=== PATIENT | male | born 1930 | race Caucasian/White ===

== ENCOUNTER 2016-12-20 08:50 | Observation (INO) | payer MEDICARE, OTHER ==
--- NOTE | 2016-12-20 09:27 | RAD ---
Exam: Two-view chest COMPARISON: 02/06/2016, 08/30/[address] chest 04/27/2016 INDICATION: Cough and shortness of breath for 3 to 4 days. Findings: PA and lateral views of the chest were obtained. Cardiac silhouette is within normal limits. Lung volumes in the bases are relatively low, with left basilar scarring. Underlying upper lobe predominant emphysema is again appreciated. There is no focal airspace disease or pleural effusion. Right shoulder arthroplasty is appreciated. IMPRESSION: No acute pulmonary process.
[2016-12-20] MEDS ORDERED: ALBUTEROL/IPRATROPIUM 2.5/0.5 MG 3 ML/EACH DOSE ONE (09:55)
[2016-12-20] MEDS ORDERED: AZITHROMYCIN 250 MG TABLET ONE (09:59)
[2016-12-20] MEDS ORDERED: DEXAMETHASONE 4 MG TABLET ONE (09:59)
[2016-12-20] MEDS ORDERED: ALBUTEROL SULFATE 5MG/ML INHALANT 20 ML BOT ONE (10:41)
[2016-12-20] MEDS ORDERED: IPRATROPIUM BROMIDE 0.5 MG/2.5 ML DOSE ONE (10:41)
[2016-12-20 12:31] LABS: ABSOLUTE NEUTROPHIL COUNT 11.8 K/mm3 (1.8-7.7); BASO % 0.2 % (0.2-1.0); EOS # 0.1 (0.0-0.5); EOS % 0.4 % (0.9-2.9); HEMATOCRIT 37.6 % (32.0-52.0); HEMOGLOBIN 12.8 gm/l (14.0-18.0); IMM NEUT% 0.2 % (0-1); LYMPH # 1.2 (1.0-4.8); LYMPH % 8.6 % (15-45); MEAN CELL VOLUME 93.8 fl (80.0-94.0); MEAN CORPUSCULAR HEMOGLOBIN 31.9 pg (27.0-31.0); MEAN PLATELET VOLUME 9.2 fl (7.4-10.4); MONO # 0.5 (0.0-0.8); MONO % 3.4 % (4-12); NEUT % 87.2 % (43-75); PLATELET COUNT 217 K/mm3 (130-400); RED CELL DISTRIBUTION WIDTH 12.9 % (11.5-14.5)
[2016-12-20 13:20] LABS: URINE BILIRUBIN NEGATIVE (NEGATIVE); URINE BLOOD NEGATIVE (NEGATIVE); URINE GLUCOSE (UA) NEGATIVE (NEGATIVE); URINE LEUKOCYTE ESTERASE NEGATIVE (NEGATIVE); URINE NITRITE NEGATIVE (NEGATIVE); URINE PROTEIN TRACE (NEGATIVE); URINE UROBILINOGEN NORMAL (0-1 mg/dl)
[2016-12-20 13:21] LABS: URINE APPEARANCE CLEAR; URINE COLOR YELLOW
[2016-12-20 14:15] LABS: ALB/GLOB RATIO 1.1 (>1.0); ALBUMIN 3.7 gm/dL (3.5-5.7); CALCIUM 9.1 mg/dL (8.6-10.3)
[2016-12-20 14:58] VITALS: BMI 27.3
[2016-12-20] MEDS ORDERED: BLISTEX LIPSTICK 1 EACH TP PRN (16:06)
[2016-12-20] MEDS ORDERED: SODIUM CHLORIDE 0.9% 100 ML IV PRN (16:06)
[2016-12-20] MEDS ORDERED: MENTHOL/CETYLPYRD 1 EACH LOZENGE PO PRN (16:06)
[2016-12-20] MEDS ORDERED: BISACODYL 5 MG TABLET.EC PO PRN (16:06)
[2016-12-20] MEDS ORDERED: ACETAMINOPHEN 325 MG TABLET PO PRN (16:06)
[2016-12-20] MEDS ORDERED: BISACODYL 10 MG SUP PR PRN (16:06)
[2016-12-20] MEDS ORDERED: MAGNESIUM HYDROXIDE 30 ML UDCUP PO PRN (16:06)
[2016-12-20] MEDS ORDERED: ALBUTEROL SULFATE MDI 60 PUFFS/INHALER IH PRN (16:17)
[2016-12-20] MEDS ORDERED: ALBUTEROL/IPRATROPIUM 2.5/0.5 MG 3 ML/EACH DOSE NEB PRN (16:19)
[2016-12-20] MEDS: FLUTICASONE/SALMETEROL 250/50 14 PUFFS/DISK IH SCH (20:53)
[2016-12-20] MEDS: DOCUSATE SODIUM 100 MG CAPSULE PO SCH (20:53)
[2016-12-20] MEDS ORDERED: SODIUM CHLORIDE 0.9% 1,000 ML IV SCH (21:00)
[2016-12-20] MEDS ORDERED: EZETIMIBE 10 MG TABLET PO SCH (21:00)
[2016-12-20] MEDS ORDERED: FLUTICASONE/SALMETEROL 250/50 14 PUFFS/DISK IH SCH (21:00)
[2016-12-20] MEDS ORDERED: PUMP TUBING ONE (21:21)
[2016-12-20] MEDS: SODIUM CHLORIDE 0.9% 1,000 ML IV SCH (22:39)
--- NOTE | 2016-12-20 22:58 | HP ---
KURTIS GROSS [id number] DATE OF : 1930 IDENTIFICATION: An 86-year-old male. CHIEF COMPLAINT: Shortness of breath. HISTORY OF PRESENT ILLNESS: The patient is an 86-year-old male with a history of coronary artery disease and emphysema who developed worsening shortness of breath following a cold. On Sunday he developed head congestion, some shortness of breath and cough. The congestion has improved, but the shortness of breath has progressed since then. He caught the cold from his . He did not have any fevers with the cold, slight cough which has resolved. Due to the worsening shortness of breath he has presented to the emergency department today. Evaluation did not reveal an acute pneumonia. Slight increase in BMP, indicating some fluid overload, but not necessarily full-on heart failure as there is no peripheral edema evident on exam. He had no other complaints. REVIEW OF SYSTEMS: General - no fevers or chills. ENT - congestion. No throat pain. Cardiovascular - no chest pain or pressure. Respiratory - shortness of breath and cough. Abdomen - no abdominal pain, nausea, vomiting or diarrhea. - no difficulties with urination. Musculoskeletal - back pain. Neurologic - no lightheadedness, dizziness, numbness or tingling. PAST MEDICAL HISTORY: 1. Coronary artery disease, with a previous myocardial infarction and stenting. 2. COPD. 3. Hyponatremia, with a baseline sodium in the high 20's to lower 30's. 4. Hypertension. 5. Degenerative disk disease. 6. Testosterone deficiency. 7. Hyperlipidemia. 8. GERD. 9. Thyroid nodule. PAST SURGICAL HISTORY: Includes: 1. A right reversed shoulder arthroplasty in 2014. 2. Coronary artery stent in 2013. 3. Bilateral knee surgeries. 4. Left total knee replacement in 2012. 5. Cataract surgery. 6. Tonsillectomy and adenoidectomy. ALLERGIES: Include: 1. Statins. 2. Tetanus toxoid. 3. Ibuprofen. MEDICATIONS: 1. Albuterol. 2. Spiriva. 3. CoQ10. 4. Multivitamins. 5. Aspirin. 6. Testosterone. 7. Vitamin D-3. 8. Advair. 9. Omeprazole. 10. Zetia. 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 He lives with his . He has two daughters. Remote smoking history. He quit back in the 80's. FAMILY MEDICAL HISTORY: Mother with hypertension. A sister with Hodgkin's disease. A brother with emphysema and a second brother with colon cancer. PHYSICAL EXAMINATION: VITAL SIGNS: Temperature 97.8. Heart rate of 100. Blood pressure of 133/63. Saturating 95% on two liters nasal cannula. GENERAL: He is alert and oriented. No acute distress. Cooperative. HEENT: Normocephalic, atraumatic. No tenderness to palpation. His mucous membranes are moist. Pupils are equal, round and reactive. His extraocular muscles are intact. There is no scleral icterus or conjunctival injection. Trachea is midline. NECK: Supple. CARDIOVASCULAR: Positive S1, S2. It is regular. There are palpable peripheral pulses PT and radially. RESPIRATORY: Clear to auscultation bilaterally. No rhonchi or wheezing. ABDOMEN: Soft, nontender and nondistended. No rebound or guarding. MUSCULOSKELETAL: Moving extremities without difficulty. Nontender. NEUROLOGIC: He is alert and oriented. LABORATORY STUDIES: Sodium 132, potassium 3.7, chloride 95, BUN of 16, creatinine 1.0, glucose 165, magnesium 2.0. Troponin less than 0.1. BNP of 163. White blood count of 15.5, hemoglobin 12.8 and hematocrit 37.6, with a platelet count of 217. VBG lactate of 2.3. A urinalysis was obtained and it was negative for ketones, glucose, nitrites and leukocyte esterase. Influenza A and B swab was negative. IMAGING: A chest x-ray was obtained that showed no acute pulmonary process. An EKG was obtained, shows a sinus tachycardia of 110 beats per minute. QRS duration of 140 milliseconds, QTC of 422 milliseconds. There is a left axis deviation. There are no acute ST segment elevations or depressions. There is a right bundle branch present. ASSESSMENT/PLAN: This is an 86-year-old male with COPD and coronary artery disease, with recent viral infection, presenting with worsening shortness of breath. In the emergency department he received DuoNebs, albuterol, azithromycin and Decadron. 1. COPD exacerbation secondary to viral illness. Will provide steroids. Continue azithromycin and continue his home inhalers, with the addition of DuoNebs as needed. 2. Coronary artery disease, stable. Continue his home medications. 3. GERD, stable. Continue his home medications. 4. Hyperlipidemia. Continue home medications. 5. Elevated Lactate. Do not suspect SIRS or sepsis. Patient with normal range blood pressure, heart rate. Elevation 2nd to acute respiratory distress. cc: Dr. Romero Chao
[2016-12-21] MEDS: SODIUM CHLORIDE 0.9% 1,000 ML IV SCH (06:19)
[2016-12-21 06:52] LABS: ABSOLUTE NEUTROPHIL COUNT 10.1 K/mm3 (1.8-7.7); BASO % 0.1 % (0.2-1.0); HEMOGLOBIN 10.7 gm/l (14.0-18.0); IMM NEUT% 0.3 % (0-1); LYMPH # 0.7 (1.0-4.8); LYMPH % 6.4 % (15-45); MEAN CELL VOLUME 92.8 fl (80.0-94.0); MEAN CORPUSCULAR HGB CONC 33.4 g/dl (33.0-37.0); MEAN PLATELET VOLUME 9.1 fl (7.4-10.4); MONO # 0.7 (0.0-0.8); MONO % 5.8 % (4-12); NEUT % 87.4 % (43-75); PLATELET COUNT 227 K/mm3 (130-400)
[2016-12-21 07:11] LABS: CALCIUM 8.2 mg/dL (8.6-10.3)
[2016-12-21 08:15] VITALS: BP 139/79
[2016-12-21] MEDS ORDERED: PREDNISONE 20 MG TABLET PO SCH (09:00)
[2016-12-21] MEDS ORDERED: TIOTROPIUM BROMIDE 18 MCG 5 CAP/INHALER IH SCH ×2 (09:00)
[2016-12-21] MEDS ORDERED: OMEPRAZOLE 20 MG CAPSULE.DR PO SCH (09:00)
[2016-12-21] MEDS ORDERED: ASPIRIN CHEWTAB 81 MG TABLET PO SCH (09:00)
[2016-12-21] MEDS ORDERED: AZITHROMYCIN 250 MG TABLET PO SCH (09:00)
[2016-12-21] MEDS ORDERED: PANTOPRAZOLE 40 MG TABLET DR PO SCH (09:00)
[2016-12-21] MEDS: DOCUSATE SODIUM 100 MG CAPSULE PO SCH (09:03)
[2016-12-21] MEDS: FLUTICASONE/SALMETEROL 250/50 14 PUFFS/DISK IH SCH (09:03)
--- NOTE | 2016-12-21 11:32 | PDOC5 ---
ADMIT DATE: 12/20/16 DISCHARGE DATE: 12/21/16 ADMISSION DIAGNOSES: Viral URI Discharge Diagnoses: Viral URI COPD exacerbation COPD Gold Class 2 CAD GERD HLD Hyponatremia, chronic HTN DDD Testosterone Deficiency Thyroid Nodule PROCEDURES PERFORMED THIS HOSPITALIZATION: None CONSULTATIONS: None HOSPITAL COURSE: This is a 86 year old male who developed an upper respiratory tract infection last Sunday with improvement in his symptoms except for worsening shortness of breath. He does have a cough with this shortness in breath. He was found to have an elevated lactate of 2.3 which improved with IVF to 1.3. His sodium remained 130-132 pre his usual. He was provided with steriods and azithromycin for atypical/viral pneumonia or COPD exacerbation. In the morning, his shortness of breath improved and he wants to go home. He did not require supplemental oxygen. - Exam Vital Signs Temperature 96.9 F 12/21/16 07:00 Pulse Rate 78 12/21/16 07:00 Respiratory Rate 18 12/21/16 07:00 Blood Pressure 139/79 12/21/16 07:00 O2 Saturation by Pulse Oximetry 91 12/21/16 07:55 Oxygen Delivery Method Room Air Oxygen Flow Rate 0 General: Alert, Oriented x3, Cooperative, No Acute Distress HEENT: Atraumatic, PERRLA, EOMI, Mucous membr. moist/pink Lungs: Clear to Auscultation Bilaterally, Normal Air Movement, Other (no crackle or wheeze) Cardiovascular: Regular Rate and Rhythm, Normal S1, Normal S2 Abdomen: Soft, Mild Distention, No Rigid, No Tenderness, No Rebounding Extremities: No Cyanosis, No Edema, No Tenderness Neurological: Normal Speech Psych/Mental Status: Normal Mood - Results Laboratory 12/21/16 06:30 12/21/16 06:30 12/21/16 12/20/16 06:30 20:06 RBC 3.45 L VBG Lactate 4.7 H Estimated GFR 91 H Calcium 8.2 L Laboratory Tests 12/20/16 12/20/16 12/20/16 09:10 12:05 20:06 WBC 13.5 H RBC 4.01 L Hgb 12.8 L Hct 37.6 VBG Lactate 2.3 H 4.7 H Sodium 132 L Troponin I < 0.01 B-Natriuretic Peptide 163 H Influenza A (Rapid) Negative Influenza B (Rapid) Negative 12/21/16 06:30 WBC RBC Hgb Hct VBG Lactate Sodium 131 L Troponin I B-Natriuretic Peptide Influenza A (Rapid) Influenza B (Rapid) Laboratory Tests 12/21/16 01:50 VBG Lactate 1.3 Imaging Results: CXR: No acute cardiopulmonary process - Problems:Assessment/Plan (1) COPD (chronic obstructive pulmonary disease) Qualifiers: COPD type: emphysema Status: ChronicAssessment/Plan: with possible exacerbation but no wheezing on exam, symptomatic however and dave 90 O2 sats. Continue home therapies. Short steroid course and azithromycin (2) GERD (gastroesophageal reflux disease) Qualifiers: Esophagitis presence: without esophagitis Qualifier Code: (K21.9) Gastro-esophageal reflux disease without esophagitis Status: Chronic Assessment/Plan: stable (3) Hyponatremia Status: AcuteAssessment/Plan: chronic, sodium in baseline range (4) CAD (coronary artery disease) Qualifiers: Coronary Disease-Associated Artery/Lesion type: unspecified vessel or lesion type Associated angina: without angina Status: ChronicAssessment/ Plan: no evidence of ACS and asymptomatic (5) Dyslipidemia Status: ChronicAssessment/Plan: stable (6) Anemia Qualifiers: Anemia type: unspecified type Qualifier Code: (D64.9) Anemia, unspecified Status: ChronicAssessment/Plan: dilutional overnight. Low hemoglobin on admission. OP F/U (7) Lactic acidosis Status: AcuteAssessment/Plan: 2nd to respiratory distress and effort. Improved with IVF. Due not suspect SIRS/Sepsis as no local infection identified. Vitals stable upon presentation to medical floor (8) Viral URI with cough Status: AcuteAssessment/Plan: developed symptoms last Sunday and with cold. Triggered current shortness or breath - Discharge Plan Prescriptions: Prednisone [PREDNISONE 20 MG (SHF)] 40 mg PO QAM #8 tablet Pantoprazole Sodium [PROTONIX 40 MG TABLET (SHF)] 40 mg PO DAILY #4 tablet. Azithromycin [ZITHROMAX 250 MG TABLET (SHF)] 500 mg PO DAILY #3 tablet Condition: Good Disposition: Home
--- NOTE | 2016-12-21 13:56 | HP ---
Simón Chan : 1930 CHIEF COMPLAINT: Shortness of breath. HISTORY OF PRESENT ILLNESS: The patient is an 86-year-old male with a history of coronary artery disease and emphysema who developed worsening shortness of breath following a cold. On Sunday he developed head congestion and some shortness of breath and cough. The congestion has improved, but the shortness of breath has progressed since then. He caught the cold from his . He did not have any fevers with the cold, slight cough, which has resolved. Due to the worsening shortness of breath he presented to the emergency department today. Evaluation did not reveal an acute pneumonia. A slight increase in BNP indicating some fluid overload, but not necessarily full on heart failure as there is no peripheral edema evident on exam. He had no other complaints. REVIEW OF SYSTEMS: General: No fevers or chills. ENT: Congestion. No throat pain. Cardiovascular: No chest pain or pressure. Respiratory: Shortness of breath, cough. Abdomen: No abdominal pain, nausea, vomiting, diarrhea. : No difficulties with urination. Musculoskeletal: Back pain. Neurologic: No lightheadedness, dizziness, numbness, tingling. PAST MEDICAL HISTORY: Coronary artery disease with a previous myocardial infarction and stenting, chronic obstructive pulmonary disease, hyponatremia with a baseline sodium in high 20's to low 30's, hypertension, degenerative disc disease, testosterone deficiency, hyperlipidemia, gastroesophageal reflux disease, thyroid nodule. PAST SURGICAL HISTORY: Includes a right reversed shoulder arthroplasty in 2014, coronary artery stent in 2013, bilateral knee surgeries, left total knee replacement in 2012, cataract surgery, tonsillectomy, and adenoidectomy. ALLERGIES: INCLUDE STATIN, TETANUS TOXIN, AND IBUPROFEN. MEDICATIONS: 1. Albuterol. 2. Spiriva. 3. Co-Q 10. 4. Multivitamin. 5. Aspirin. 6. Testosterone. 7. Vitamin D3. 8. Advair. 9. Omeprazole. 10. Zetia. 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 He lives with his . He has two daughters. Remote smoking history, he quit back in the 80's. FAMILY MEDICAL HISTORY: Mother with hypertension. Sister with Hodgkin's disease. A brother with emphysema and a second brother with colon cancer. PHYSICAL EXAMINATION: VITAL SIGNS: Temperature 97.8, heart rate of 100, blood pressure 133/63, saturating 95% on 2 liters nasal cannula. GENERAL: He is alert and oriented in no acute distress, cooperative. HEENT: Normocephalic, atraumatic. No tenderness to palpation. Mucous membranes are moist. Pupils are equal, round, and reactive. Extraocular muscles intact. There is no scleral icterus, conjunctival injection. NECK: Supple. Trachea midline. CARDIOVASCULAR: Positive S1, S2, regular. He has palpable peripheral pulses, PT and radially. RESPIRATORY: Clear to auscultation bilaterally. No rhonchi, wheezing. ABDOMEN: Soft, nontender, nondistended. No rebound, no guarding. MUSCULOSKELETAL: He is moving extremities without difficulty, nontender. NEUROLOGIC: He is alert and oriented. LABORATORY STUDIES: Sodium 132, potassium 3.7, chloride 95, BUN 16, creatinine 1.0, glucose 165, magnesium 2.0. Troponin less than 0.1, BNP of 163. White blood count 15.5, hemoglobin is 12.8, hematocrit of 37.6 with a platelet count of 217. A VBG lactate of 2.3. Urinalysis was obtained and it was negative for ketones, glucose, nitrites, leukocyte esterase. Influenza A and B swab was negative. DIAGNOSTICS: Chest x-ray was obtained and it showed no acute pulmonary process. EKG was obtained, it shows a sinus tachycardia of 110 beats per minute, QRS duration of 140 milliseconds, QTC of 422 milliseconds. There is a left axis deviation, there is no acute ST-segment elevations or depressions. There is a right bundle branch present. ASSESSMENT AND PLAN: This is an 86-year-old male with chronic obstructive pulmonary disease and coronary artery disease with a recent viral infection presenting with worsening shortness of breath. In the emergency department he received DuoNebs, albuterol, azithromycin, Decadron. 1. Chronic obstructive pulmonary disease exacerbation secondary to viral illness. We will provide steroids. Continue azithromycin and continue his home inhalers with the addition of DuoNebs as needed. 2. Coronary artery disease, stable. We will continue his home medications. 3. Gastroesophageal reflux disease, stable. Continue his home medications. 4. Hyperlipidemia. Continue home medications. Patient primary care physician is Dr. Romero Chao. JOB: [id number] CC: Dr. Romero Chao
== END 2016-12-21 12:40 | disposition home or self-care (01) ==
LOC: ED 08:50 → MS 14:15
PROVIDERS: ADMIT Family Medicine; ATTEND Family Medicine
DX: J44.1 Chronic obstructive pulmonary disease with (acute) exacerbation (principal); I25.10 Atherosclerotic heart disease of native coronary artery without angina pectoris; J43.9 Emphysema, unspecified; I25.2 Old myocardial infarction; E87.1 Hypo-osmolality and hyponatremia; I10 Essential (primary) hypertension; E78.5 Hyperlipidemia, unspecified; K21.9 Gastro-esophageal reflux disease without esophagitis; Z98.61 Coronary angioplasty status; J06.9 Acute upper respiratory infection, unspecified; D64.9 Anemia, unspecified

== ENCOUNTER 2016-12-22 13:21 | Emergency (ER) | payer MEDICARE, OTHER ==
[2016-12-22] MEDS ORDERED: IOPAMIDOL 300 (61%) 150 ML VIAL IV ONE (13:22)
[2016-12-22 16:09] LABS: SPECIFIC GRAVITY 1.015 (1.001-1.030); URINE BILIRUBIN NEGATIVE (NEGATIVE); URINE BLOOD NEGATIVE (NEGATIVE); URINE GLUCOSE (UA) NEGATIVE (NEGATIVE); URINE LEUKOCYTE ESTERASE NEGATIVE (NEGATIVE); URINE NITRITE NEGATIVE (NEGATIVE); URINE PROTEIN NEGATIVE (NEGATIVE); URINE UROBILINOGEN NORMAL (0-1 mg/dl)
[2016-12-22 16:11] LABS: URINE APPEARANCE CLEAR; URINE COLOR LIGHT YELLOW
[2016-12-22 17:11] LABS: ABSOLUTE NEUTROPHIL COUNT 11.6 K/mm3 (1.8-7.7); BASO % 0.2 % (0.2-1.0); HEMATOCRIT 37.4 % (32.0-52.0); HEMOGLOBIN 12.5 gm/l (14.0-18.0); IMM NEUT # 0.1 K/mm3 (0-0.2); IMM NEUT% 1.1 % (0-1); LYMPH # 0.5 (1.0-4.8); LYMPH % 4.2 % (15-45); MEAN CELL VOLUME 92.8 fl (80.0-94.0); MEAN CORPUSCULAR HGB CONC 33.4 g/dl (33.0-37.0); MEAN PLATELET VOLUME 9.4 fl (7.4-10.4); MONO # 0.4 (0.0-0.8); NEUT % 91.5 % (43-75); PLATELET COUNT 312 K/mm3 (130-400); RED CELL DISTRIBUTION WIDTH 13.3 % (11.5-14.5)
[2016-12-22 17:26] LABS: ALB/GLOB RATIO 1.2 (>1.0); ALBUMIN 3.8 gm/dL (3.5-5.7); CALCIUM 9.3 mg/dL (8.6-10.3)
--- NOTE | 2016-12-22 17:27 | CT ---
CT ABDOMEN AND PELVIS WITH CONTRAST HISTORY: Low back pain. TECHNIQUE: Following intravenous administration of 125 mL Isovue-300, contiguous axial images were acquired from the lung bases to the ischial tuberosities. Oral contrast was not administered. COMPARISON: 02/04/2016. FINDINGS: LUNG BASES: Mild changes of emphysema with probable bibasilar scarring, resolution of previously noted left lower lobe airspace abnormality. Redemonstration of right middle lobe 9 mm nodule, as well as right lower lobe 9 mm nodule. LIVER: Redemonstration of cystic lesions of the left hepatic lobe, now measuring up to 1.9 cm in size, stable. SPLEEN: No focal lesion. Stomach: Small hiatal hernia. PANCREAS: No focal lesion. ADRENAL GLANDS: No mass effect. KIDNEYS: 1.5 cm right renal cyst. Redemonstration of small low-attenuation lesions of the left lower pole. GALLBLADDER: Present. BOWEL: Moderate fecal loading. Limited assessment of the distal colon due to decompression. No abnormal small bowel dilatation. Prominent changes of colonic diverticulosis without features of diverticulitis. APPENDIX: Normal gas-filled appendix. PELVIC ORGANS: Minor bladder wall thickening. Inguinal regions: Redemonstration of low-attenuation 2 cm. A hypoplastic undescended testis or complex fluid collection in the setting of postprocedural change or prior inflammation are possible; however, this is an unchanged appearance. Fatty left inguinal hernia. Focus associated with the right inguinal canal FREE FLUID: No gross free fluid identified. ABDOMINOPELVIC LYMPH NODES: No abnormally enlarged lymph nodes identified. ABDOMINAL AORTA: Atherosclerotic calcifications of the distal abdominal aorta with moderate to severe stenosis of the right common iliac artery. OSSEOUS STRUCTURES: Prominent changes of multilevel lumbar disc degeneration, no vertebral compression fracture identified multilevel disc osteophyte ridge formation without dominant extrusion or high-grade canal stenosis. IMPRESSION: 1. Prominent lumbar spondylosis without dominant disc extrusion, compression fracture, or high-grade canal stenosis. 2. Interval resolution of left lower lobe pneumonia with probable scarring. 3. Pulmonary nodules of the right middle and lower lobes, seen on January 2016 study, recommend follow-up in 6-12 months. Mild emphysema. 4. Redemonstration of aortic atherosclerotic disease, hepatic and renal cystic lesions. 5. Abnormal appearance of the inguinal canals as above. 6. Bladder wall thickening may indicate cystitis. 7. Colonic diverticulosis without features of diverticulitis. 8. Small hiatal hernia. Results were electronically transmitted to the electronic medical record at 12/22/2016 at 1723 hours.
[2016-12-22 20:13] LABS: BAND 0 % (0-10); BASOPHIL 0 % (0-1); EOSINOPHIL 0 % (1-3); LYMPHOCYTE 7 % (15-45); MONOCYTE 4 % (4-12); NEUTROPHILS 89 % (43-75); PLATELET ESTIMATE NORMAL (NORMAL); TOTAL CELLS COUNTED 100
== END 2016-12-22 18:02 | disposition home or self-care (01) ==
LOC: ED 13:21
DX: M54.5 Low back pain (principal); J43.9 Emphysema, unspecified; I25.10 Atherosclerotic heart disease of native coronary artery without angina pectoris; Z87.891 Personal history of nicotine dependence